=== PATIENT | female | born 1980 | race Caucasian/White ===

== ENCOUNTER 2017-12-02 10:43 | Emergency (ER) | payer MEDICAID ==
[~2017-12-02] VITALS: Ht 165.1 cm; Wt 78.0 kg
[~2017-12-02 10:43] MED LIST: ALBU2.5V11 NEB; AMIT10TA PO; BUTA1CAP30 PO; BUTA1CAP57 PO; CYCL-259 PO; FLUO20CA19 PO; FLUO40CA9 PO; FLUT1DIS3 INH; GABA-826 PO; HYDR50CA2 PO; OXYC-306 PO; POTA10TA11 PO
[2017-12-02 10:47] VITALS: BP 133/74
[2017-12-02] MEDS ORDERED: HYDROcodone/APAP 5/325 TABLET ONE (11:29)
[2017-12-02] MEDS ORDERED: HYDROcodone/APAP 5/325 TABLET PO PRN (11:30)
== END 2017-12-02 12:30 | disposition home or self-care (01) ==
LOC: ED 12:00
DX: S40.011A Contusion of right shoulder, initial encounter (principal); Z90.710 Acquired absence of both cervix and uterus; Z88.6 Allergy status to analgesic agent; Y04.0XXA Assault by unarmed brawl or fight, initial encounter; Y93.89 Activity, other specified; Y92.89 Other specified places as the place of occurrence of the external cause; Y99.8 Other external cause status
CPT/HCPCS: 99284